=== PATIENT | female | born 1995 | race Caucasian/White ===

== ENCOUNTER 2016-09-19 11:57 | Emergency (ER) | payer SELFPAY ==
[2016-09-19] MEDS ORDERED: ONDANSETRON 4 MG VIAL ONE (14:23)
[2016-09-19] MEDS ORDERED: MORPHINE 4 MG/ML SYR ONE (14:24)
[2016-09-19] MEDS ORDERED: SODIUM CHLORIDE 0.9% 1,000 ML ONE (14:24)
== END 2016-09-19 18:40 | disposition home or self-care (01) ==
LOC: ER 11:57
CPT/HCPCS: 74176; 76830; 87077; 87186; 96361; 96374; 96375

== ENCOUNTER → 2016-10-20 | Emergency (ER) | payer SELFPAY | LOC: ER 17:46 | DX: Z53.21 Procedure and treatment not carried out due to patient leaving prior to being seen by health care provider (principal) ==